=== PATIENT | female | born 1965 | race Caucasian/White ===

== ENCOUNTER → 2018-05-20 | Outpatient (CLI) | payer BC | LOC: MC.RAD 07:06 | DX: Z12.31 Encounter for screening mammogram for malignant neoplasm of breast (principal); N63.31 Unspecified lump in axillary tail of the right breast ==

== ENCOUNTER → 2018-06-07 | Outpatient (CLI) | payer BC | LOC: MC.RAD 07:30 | DX: R22.33 Localized swelling, mass and lump, upper limb, bilateral (principal) ==

== ENCOUNTER → 2021-02-17 | Outpatient (CLI) | payer BC | LOC: COL.RAD 02-14 10:30 | DX: E21.3 Hyperparathyroidism, unspecified (principal) | CPT/HCPCS: A9500 ==

== ENCOUNTER → 2021-05-11 | Outpatient (CLI) | payer BC | LOC: MC.RAD 02-17 07:45 | DX: Z12.31 Encounter for screening mammogram for malignant neoplasm of breast (principal) ==

== ENCOUNTER → 2023-05-04 | Outpatient (CLI) | payer BC | LOC: MC.RAD 07:17 | DX: Z12.31 Encounter for screening mammogram for malignant neoplasm of breast (principal) ==